=== PATIENT | male | born 1955 | race American Indian/Alaskan Native ===

== ENCOUNTER 2024-07-01 10:13 | Outpatient (AMB) | payer OTHER, SELFPAY ==
[2024-07-01 10:41] VITALS: BP 150/78; PULSE 105; RESP 19; TEMP 36.5; O2SAT 97; BMI 29.9
--- NOTE | 2024-07-01 10:41 | PD.ORTHCLVIS ---
Vital signs 07/01/24 10:41 Height 1.7 m Height Method Stated Weight 86.664 kg Weight Measurement Method Standing Scale BMI 29.9 BP 150/78 H Blood Pressure Source Automatic Cuff Blood Pressure Location Left Upper Arm Position Sitting Respiration 19 Pulse 105 H Pulse Source Monitor Temp 97.7 F Temp Source Temporal Artery Scan Pulse Oximetry (%) 97 Oxygen Delivery Method Room Air Med/Allergies Allergies & Medications Allergies No Known Drug Allergies Allergy (Verified 07/01/24 10:46) Medication Reconciliation diclofenac sodium 25 mg tablet,delayed release 25 mg PO QID 10/23/23 [History Confirmed 07/01/24] meloxicam 15 mg tablet 15 mg PO QDAY 10/23/23 [History Confirmed 07/01/24] meloxicam 7.5 mg tablet 7.5 mg PO QDAY #45 tabs 07/01/24 [Rx] Exam Exam Patient is in no acute distress and is cooperative with the examination today. Breathing is nonlabored. Patient has a normal mood and affect. The patient has a gait that is [nonantalgic] Bilateral extremities were evaluated and demonstrates sensation intact to light touch. Palpable pedal pulses are present. No significant edema is present. Bilateral hips were examined. The patient has no pain with log roll of the hips. Internal rotation to 30 degrees and external rotation to 30 degrees is painless. Negative FADIR. Right knee was examined today. The right knee is in reasonable alignment. Range of motion from 0-120 degrees. Knee is stable to varus and valgus as well as AP translation with <5mm. Patient has a negative McMurrays. There is no pain with patellofemoral compression and no crepitus noted. The knee is nontender to palpation. Left knee was examined today. The left knee is in [neutral] alignment. Range of motion from [0-120] degrees. Knee is stable to varus and valgus as well as AP translation with <5mm. Patient has a [negative] McMurrays. There is [no] pain with patellofemoral compression and [no] crepitus noted. The knee is [nontender] to palpation [diffusely]. X-rays demonstrate significant right and left knee osteoarthritis worse medially. It is [id number]. Right knee was x-rayed And demonstrates complete joint space obliteration. There are osteophytes present. Assessment and Plan Problem List (1) Arthritis of knee, left: Status: Acute Plan: Patient is a pleasant 68-year-old female with bilateral knee arthritis of significant severity. We thus discussed Conservative options including anti-inflammatories, injections as needed. He would like bilateral cortisone injections today Recommend knee cortisone injections as patient would like to proceed with conservative treatment at this time. The risks and benefits of the procedure were reviewed with the patient and patient gave verbal consent to continue with the procedure. Procedure: performed by Dr. Hamilton Using sterile technique the Bilateral knees were thoroughly prepped with alcohol, and approximately 1 cc of Kenalog 40 mg/mL and 4 cc of 1% lidocaine was injected into each knee without resistance into the medial tibial femoral joint space. The patient tolerated the procedure. Advanced Care Planning Discussion Advance care planning discussed with:: patient Office Procedures GNS Level of Care Nursing/Assessment Patient Status: Established Patient Nursing Assessment/Reassesment: Medication Reconciliation, Update PMH in EMR and Vital Signs Coordination of Care: Complex Care and Chronic Disease 1-5, Education Complex Pt/Fam, Consent,records obtained, informed consent, Results/Orders obtained and Staff clarify orders Established Patient Charge Established Patient Point Assignment: 95 Established Patient Point Charge: EP Level 3 (80-115) Surgical Proc/IM SQ injection Major Surgical Procedure: Yes (bilateral knee injections ) Medication Given Medication Given Medication Given: Yes Documented Dose Given: 8 Route: Infiitration Medication Given Medication Given Medication Given: Yes Documented Dose Given: 2 Route: Infiitration Office Meds Xylocaine 10 mg/mL (1 %) injection solution Performing Provider: Dima Hamilton MD Performing Location: [facility] Administered by: Dima Hamilton MD on 07/01/24 12:58 Dose Route Admin Location Dispensed Lot Number Expiration Date [facility] Popped Corn Oven Attendant 40 mL Infiltration 40 mL [id number] [facility] triamcinolone acetonide 40 mg/mL suspension for injection Performing Provider: Dima Hamilton MD Performing Location: [facility] Administered by: Dima Hamilton MD on 07/01/24 12:58 Dose Route Admin Location Dispensed Lot Number Expiration Date [facility] Popped Corn Oven Attendant 80 mg intra-articular 2 mL [id number] [employer] [place] Intake Visit Data Collection New Patient or Established: Established Patient (seen at [facility] within 3 years) Reason for Visit:: BL KNEE INJ F/U Seen by Clinical Staff ONLY (RN/MA): No Bi Consultant Required: No PCP or OBGYN visit in last 3 months: Yes Hx Now: No Do You Feel Safe at Home: Yes Authorities Contacted: N/A Questionairres Past Medical History Past Medical History Have you ever been diagnosed with any of the following: Respiratory Problems Smoking: No Smoking Cessation Counseling: No Smoking Exposure: No Subjective Visit Visit for: follow up visit and knee Immunization / Flu Flu Vaccine in the Last 12 Months: No Flu Vaccine Exclusion Criteria: No Exclusion Criteria History of Present Illness Chief complaint: bilateral knee pain Abel is a pleasant 68-year-old male presents today for evaluation of his left knee. He has had Left knee pain for the last 2 months. The left knee pain is improved dramatically within the last 2 weeks. He has been taking diclofenac and meloxicam. Now he is taking diclofenac. He reports his range of motion has improved significantly. He reports the pain is now back and he has difficulty working,. The right knee pain is now worse than the left Pain Pain level (0-10): 7 Pain duration: ALL DAY Pain timing: increases with activity Associated signs & symptoms: none Ambulatory data Ambulatory device: none Treatments Improvement with previous injections: Yes Improvement with PT: No Improvement with NSAIDS: no Review of Systems Review of Systems: All systems negative unless otherwise noted in HPI.
== END 2024-07-01 11:14 | disposition home or self-care (01) ==
LOC: HODSRG 10:13
PROVIDERS: PCP Internal Medicine; Referring Provider Internal Medicine; Supervising Provider Orthopaedic Surgery Adult Reconstructive Orthopaedic Surgery; Visit Provider Orthopaedic Surgery Adult Reconstructive Orthopaedic Surgery
DX: M17.0 Bilateral primary osteoarthritis of knee (principal)
CPT/HCPCS: 20610; 99213; J3301; J3490; G0463

== ENCOUNTER 2024-09-22 08:06 | Outpatient (AMB) | payer OTHER, SELFPAY ==
[2024-09-22 08:28] VITALS: BP 160/79; PULSE 88; RESP 18; TEMP 36.4; O2SAT 97; BMI 29.2
--- NOTE | 2024-09-22 08:28 | PD.ORTHCLVIS ---
Vital signs 09/22/24 08:28 Height 1.7 m Height Method Stated Weight 84.453 kg Weight Measurement Method Standing Scale BMI 29.2 BP 160/79 H Blood Pressure Source Automatic Cuff Blood Pressure Location Right Upper Arm Position Sitting Respiration 18 Pulse 88 Pulse Source Monitor Temp 97.5 F Temp Source Temporal Artery Scan Pulse Oximetry (%) 97 Oxygen Delivery Method Room Air Med/Allergies Allergies & Medications Allergies No Known Drug Allergies Allergy (Verified 09/22/24 08:29) Medication Reconciliation diclofenac sodium 25 mg tablet,delayed release 25 mg PO QID 10/23/23 [History Confirmed 09/22/24] meloxicam 15 mg tablet 15 mg PO QDAY 10/23/23 [History Confirmed 09/22/24] diclofenac sodium 3 % topical gel 1 applic topical BID #100 grams 09/22/24 [Rx] meloxicam 7.5 mg tablet 7.5 mg PO QDAY #45 tabs 09/22/24 [Rx] Exam Exam Patient is in no acute distress and is cooperative with the examination today. Breathing is nonlabored. Patient has a normal mood and affect. The patient has a gait that is [nonantalgic] Bilateral extremities were evaluated and demonstrates sensation intact to light touch. Palpable pedal pulses are present. No significant edema is present. Bilateral hips were examined. The patient has no pain with log roll of the hips. Internal rotation to 30 degrees and external rotation to 30 degrees is painless. Negative FADIR. Right knee was examined today. The right knee is in reasonable alignment. Range of motion from 0-120 degrees. Knee is stable to varus and valgus as well as AP translation with <5mm. Patient has a negative McMurrays. There is no pain with patellofemoral compression and no crepitus noted. The knee is nontender to palpation. Left knee was examined today. The left knee is in [neutral] alignment. Range of motion from [0-120] degrees. Knee is stable to varus and valgus as well as AP translation with <5mm. Patient has a [negative] McMurrays. There is [no] pain with patellofemoral compression and [no] crepitus noted. The knee is [nontender] to palpation [diffusely]. X-rays demonstrate significant right and left knee osteoarthritis worse medially. It is [id number]. Right knee was x-rayed And demonstrates complete joint space obliteration. There are osteophytes present. Assessment and Plan Problem List (1) Arthritis of knee, left: Status: Acute Plan: Patient is a pleasant 68-year-old female with bilateral knee arthritis of significant severity. We thus discussed Conservative options including anti-inflammatories, injections as needed. He would like bilateral cortisone injections today Recommend knee cortisone injections as patient would like to proceed with conservative treatment at this time. The risks and benefits of the procedure were reviewed with the patient and patient gave verbal consent to continue with the procedure. Procedure: performed by Dr. Hamilton Using sterile technique the Bilateral knees were thoroughly prepped with alcohol, and approximately 1 cc of Kenalog 40 mg/mL and 4 cc of 1% lidocaine was injected into each knee without resistance into the medial tibial femoral joint space. The patient tolerated the procedure. Advanced Care Planning Discussion Advance care planning discussed with:: patient Office Procedures GNS Level of Care Nursing/Assessment Patient Status: Established Patient Nursing Assessment/Reassesment: Medication Reconciliation, Update PMH in EMR and Vital Signs Coordination of Care: Complex Care and Chronic Disease 1-5, Education Complex Pt/Fam, Consent,records obtained, informed consent, Lab and Imaging orders, Results/Orders obtained and Staff clarify orders Special Needs: Language special needs Established Patient Charge Established Patient Point Assignment: 110 Established Patient Point Charge: EP Level 3 (80-115) Surgical Proc/IM SQ injection Major Surgical Procedure: Yes (BILATERAL KNEE INJECTION) Medication Given Medication Given Medication Given: Yes Documented Dose Given: 8 Route: Infiitration Medication Given Medication Given Medication Given: Yes Documented Dose Given: 2 Route: Infiitration Office Meds Xylocaine 10 mg/mL (1 %) injection solution Performing Provider: Dima Hamilton MD Performing Location: [facility] Administered by: Dima Hamilton MD on 09/22/24 08:44 Dose Route Admin Location Dispensed Lot Number Expiration Date [facility] Door To Door Sales Representative 40 mL Infiltration 40 mL [id number] 11/22/27 15436-079-96 [facility] triamcinolone acetonide 40 mg/mL suspension for injection Performing Provider: Dima Hamilton MD Performing Location: [facility] Administered by: Dima Hamilton MD on 09/22/24 08:44 Dose Route Admin Location Dispensed Lot Number Expiration Date [facility] Door To Door Sales Representative 80 mg intra-articular 2 mL [id number] 05/23/26 2475-1785-59 [facility]EV[facility]ENTER[facility] [place] Intake Visit Data Collection New Patient or Established: Established Patient (seen at [facility] within 3 years) Reason for Visit:: req knee injection Seen by Clinical Staff ONLY (RN/MA): No Verbal consent obtained for Telemed visit?: No Hand Engraver Required: No PCP or OBGYN visit in last 3 months: Yes Hx Now: No Do You Feel Safe at Home: Yes Authorities Contacted: N/A Questionairres Past Medical History Past Medical History Have you ever been diagnosed with any of the following: Respiratory Problems Smoking: No Smoking Cessation Counseling: No Smoking Exposure: No Subjective Visit Visit for: follow up visit and knee Immunization / Flu Flu Vaccine in the Last 12 Months: No Flu Vaccine Exclusion Criteria: No Exclusion Criteria History of Present Illness Chief complaint: req knee injection Abel is a pleasant 68-year-old male presents today for evaluation of his left knee. He has had Left knee pain for the last 2 months. The left knee pain is improved dramatically within the last 2 weeks. He has been taking diclofenac and meloxicam. Now he is taking diclofenac. He reports his range of motion has improved significantly. He reports the pain is now back and he has difficulty working,. The right knee pain is now worse than the left Pain Pain level (0-10): 8 Pain duration: all day Pain location: inside (medial), outside (lateral), anterior and posterior Pain quality: sharp, dull and aching Pain timing: increases with activity Associated signs & symptoms: none Ambulatory data Ambulatory device: none Treatments Improvement with previous injections: Yes Improvement with PT: No Improvement with NSAIDS: no Review of Systems Review of Systems: All systems negative unless otherwise noted in HPI.
== END 2024-09-22 08:43 | disposition home or self-care (01) ==
LOC: HODSRG 08:06
PROVIDERS: PCP Internal Medicine; Referring Provider Internal Medicine; Supervising Provider Orthopaedic Surgery Adult Reconstructive Orthopaedic Surgery; Visit Provider Orthopaedic Surgery Adult Reconstructive Orthopaedic Surgery
DX: M17.0 Bilateral primary osteoarthritis of knee (principal); M25.562 Pain in left knee; M25.561 Pain in right knee
CPT/HCPCS: 20610; 99213; J3301; J3490; G0463

== ENCOUNTER → 2025-01-27 | Outpatient (CLI) | payer OTHER, SELFPAY ==
[2025-01-27 08:40] LABS: Basophils # (Auto) 0.0 Thou/mm3 (0.0-0.2); Basophils % (Auto) 0 % (0-2.5); Eosinophils # (Auto) 0.1 Thou/mm3 (0.0-0.5); Eosinophils % (Auto) 1 % (0-10); Hematocrit 43.7 % (41.0-53.0); Hemoglobin 14.8 g/dL (13.5-16.0); Immature Granulocytes Auto 0.05 Thou/mm3 (0.00-0.00); Lymphocytes # (Auto) 2.2 Thou/mm3 (1.0-4.8); Lymphocytes % (Auto) 29 % (10-50); Mean Corpuscular HGB Conc 33.9 g/dl (31.0-37.0); Mean Corpuscular Hemoglobin 30.8 pg (25.0-35.0); Mean Corpuscular Volume 91 fL (80-100); Monocytes # (Auto) 0.7 Thou/mm3 (0.0-0.8); Monocytes % (Auto) 10 % (0-12); Neutrophils # (Auto) 4.3 Thou/mm3 (1.8-7.7); Neutrophils % (Auto) 59 % (37-80); Nucleated Red Blood Cell # 0.00 Thou/mm3 (0.00-0.00); Nucleated Red Blood Cell % 0 /100 WBC (0); Platelet Count 334 Thou/mm3 (140-440); RDW Standard Deviation 46.3 fL (35.1-43.9); Red Blood Count 4.81 Miln/mm3 (4.50-5.90); White Blood Count 7.3 Thou/mm3 (3.8-10.6)
[2025-01-27 08:49] LABS: Glucose Estimated Average 134 mg/dL (80-131); Hemoglobin A1C 6.3 % Hgb (4.8-6.0)
[2025-01-27 08:54] LABS: Vitamin D 25 Hydroxy Total 41.4 ng/mL (7.3-40.2)
[2025-01-27 09:00] LABS: Prostate Specific Antigen 0.81 ng/mL (0-4.00)
[2025-01-27 09:04] LABS: Alanine Aminotransferase 43 U/L (10-49); Albumin, Serum 4.4 gm/dL (3.4-4.8); Albumin/Globulin Ratio 2.1 (1.2-2.2); Alkaline Phosphatase 57 U/L (46-116); Anion Gap 12 (7-16); Aspartate Amino Transferase 23 U/L (0-34); BUN/Creatinine Ratio 24 Ratio (12-20); Bilirubin,Total 0.5 mg/dL (0.3-1.2); Blood Urea Nitrogen 17 mg/dL (9-23); Calcium 10.0 mg/dL (8.3-10.6); Calcium (Corrected) 10.0 mg/dL (8.5-10.1); Carbon Dioxide 23.8 mMol/L (20.0-31.0); Cardiac Risk Estimate 3.4 RATIO (4.0-6.7); Chloride 111 mMol/L (98-107); Cholesterol 131 mg/dL (132-200); Creatinine (Component) 0.7 mg/dL (0.6-1.3); Free T4 (Free Thyroxine) 1.13 ng/dL (0.89-1.76); Globulin 2.1 gm/dL (2.3-3.5); Glucose 141 mg/dL (74-106); HDL Cholesterol 38 mg/dL (40-60); LDL Cholesterol,Calculated 65 mg/dL (0-130); Osmolality,Calculated 295 (275-295); Potassium 4.2 mMol/L (3.4-5.1); Sodium 147 mMol/L (136-145); Thyroid Stimulating Hormone 1.22 uIU/mL (0.55-4.78); Total Protein 6.5 gm/dL (5.7-8.2); Triglycerides 138 mg/dL (30-150); eGFR > 60 See Note
== END | disposition home or self-care (01) ==
PROVIDERS: PCP Internal Medicine; Referring Provider Internal Medicine; Visit Provider Internal Medicine
DX: Z00.00 Encounter for general adult medical examination without abnormal findings (principal); E11.9 Type 2 diabetes mellitus without complications; N40.1 Benign prostatic hyperplasia with lower urinary tract symptoms; E55.9 Vitamin D deficiency, unspecified; E03.9 Hypothyroidism, unspecified
CPT/HCPCS: 36415; 80053; 80061; 82306; 83036; 84153; 84439; 84443; 85025

== ENCOUNTER → 2025-02-10 | Outpatient (CLI) | payer OTHER, SELFPAY ==
[2025-02-10 17:17] LABS: Creatinine MALB Rnd Ur 165 mg/dL (30-125); Microalbumin Creat Ratio 5 mg/gCrea (<30); Microalbumin, Random Urine 8 mg/L (0-300)
[2025-02-16 06:56] LABS: Fecal Globin Result NOT DETECTED (NOT DETECTED)
== END | disposition home or self-care (01) ==
LOC: SLDO 14:58
PROVIDERS: Referring Provider Internal Medicine; Visit Provider Internal Medicine
DX: Z00.00 Encounter for general adult medical examination without abnormal findings (principal)
CPT/HCPCS: 82043; 82274; 82570; G0328

== ENCOUNTER 2025-02-17 09:18 | Outpatient (AMB) | payer OTHER, SELFPAY ==
--- NOTE | 2025-02-17 09:34 | ORTHONT_ITS ---
Vital signs 02/17/25 09:35 Height 1.7 m Height Method Measured Weight 85.02 kg Weight Measurement Method Standing Scale BMI 29.4 BP 162/92 H Blood Pressure Source Automatic Cuff Blood Pressure Location Left Upper Arm Position Sitting Respiration 18 Pulse 91 Pulse Source Monitor Temp 97.9 F Temp Source Temporal Artery Scan Pulse Oximetry (%) 97 Oxygen Delivery Method Room Air Med/Allergies Allergies & Medications Allergies No Known Drug Allergies Allergy (Verified 02/17/25 09:36) Medication Reconciliation diclofenac sodium 25 mg tablet,delayed release 25 mg PO QID 10/23/23 [History Confirmed 02/17/25] meloxicam 15 mg tablet 15 mg PO QDAY 10/23/23 [History Confirmed 02/17/25] diclofenac sodium 3 % topical gel 1 applic topical BID #100 grams 09/22/24 [Rx Confirmed 02/17/25] meloxicam 7.5 mg tablet 7.5 mg PO QDAY #45 tabs 09/22/24 [Rx Confirmed 02/17/25] Exam Exam Patient is in no acute distress and is cooperative with the examination today. Breathing is nonlabored. Patient has a normal mood and affect. The patient has a gait that is [nonantalgic] Bilateral extremities were evaluated and demonstrates sensation intact to light touch. Palpable pedal pulses are present. No significant edema is present. Bilateral hips were examined. The patient has no pain with log roll of the hips. Internal rotation to 30 degrees and external rotation to 30 degrees is painless. Negative FADIR. Right knee was examined today. The right knee is in reasonable alignment. Range of motion from 0-120 degrees. Knee is stable to varus and valgus as well as AP translation with <5mm. Patient has a negative McMurrays. There is no pain with patellofemoral compression and no crepitus noted. The knee is nontender to palpation. Left knee was examined today. The left knee is in [neutral] alignment. Range of motion from [0-120] degrees. Knee is stable to varus and valgus as well as AP translation with <5mm. Patient has a [negative] McMurrays. There is [no] pain with patellofemoral compression and [no] crepitus noted. The knee is [nontender] to palpation [diffusely]. X-rays demonstrate significant right and left knee osteoarthritis worse medially. It is [id number]. Right knee was x-rayed And demonstrates complete joint space obliteration. There are osteophytes present. Assessment and Plan Problem List (1) Arthritis of knee, left: Status: Acute Plan: Patient is a pleasant 68-year-old female with bilateral knee arthritis of significant severity. We thus discussed Conservative options including anti- inflammatories, injections as needed. He would like bilateral cortisone injections today Recommend knee cortisone injection as patient would like to proceed with conservative treatment at this time. The risks and benefits of the procedure were reviewed with the patient and patient gave verbal consent to continue with the procedure. Procedure: performed by Dr. Hamilton Using sterile technique the Right knee was thoroughly prepped with alcohol, and approximately 1 cc of Depo-Medrol 80mg/mL and 4 cc of 0.2% ropivacaine was injected without resistance into the medial tibial femoral joint space. The patient tolerated the procedure. Recommend knee cortisone injection as patient would like to proceed with conservative treatment at this time. The risks and benefits of the procedure were reviewed with the patient and patient gave verbal consent to continue with the procedure. Procedure: performed by Dr. Hamilton Using sterile technique the leftknee was thoroughly prepped with alcohol, and approximately 1 cc of Depo- Medrol 80mg/mL and 4 cc of 0.2% ropivacaine was injected without resistance into the medial tibial femoral joint space. The patient tolerated the procedure. Advanced Care Planning Discussion Advance care planning discussed with:: patient Office Procedures GNS Level of Care Nursing/Assessment Patient Status: Established Patient Nursing Assessment/Reassesment: Medication Reconciliation, Update PMH in EMR and Vital Signs Coordination of Care: Complex Care and Chronic Disease 1-5, Education Complex Pt/Fam, Consent,records obtained, informed consent, Results/Orders obtained and Staff clarify orders Established Patient Charge Established Patient Point Assignment: 95 Established Patient Point Charge: EP Level 3 (80-115) Surgical Proc/IM SQ injection Minor Surgical Procedure: Yes (KNEE INJECTION) Medication Given Medication Given Medication Given: Yes Documented Dose Given: 1 Route: Infiitration Medication Given Medication Given Medication Given: Yes Documented Dose Given: 1 Route: Infiitration Medication Given Medication Given Medication Given: Yes Documented Dose Given: 4 Route: Infiitration Medication Given Medication Given Medication Given: Yes Documented Dose Given: 4 Route: Infiitration Office Meds methylprednisolone acetate 80 mg/mL suspension for injection Performing Provider: Dima Hamilton MD Performing Location: [facility] Administered by: Dima Hamilton MD on 02/17/25 10:54 Dose Route Admin Location Dispensed Lot Number Expiration Date Pack age [facility] Vacuum Cleaner Assembler 80 mg intra-articular KNEE 1 mL [id number] 10/22/26 [address]-1 7 [id number] [employer] methylprednisolone acetate 80 mg/mL suspension for injection Performing Provider: Dima Hamilton MD Performing Location: [facility] Administered by: Dima Hamilton MD on 02/17/25 10:54 Dose Route Admin Location Dispensed Lot Number Expiration Date Pack age [facility] Vacuum Cleaner Assembler 80 mg intra-articular KNEE 1 mL [id number] 10/22/26 [address]-6 7 [id number] [employer] ropivacaine (PF) 2 mg/mL (0.2 %) injection solution Performing Provider: Dima Hamilton MD Performing Location: [facility] Administered by: Dima Hamilton MD on 02/17/25 10:54 Dose Route Admin Location Dispensed Lot Number Expiration Date Pack age [facility] Vacuum Cleaner Assembler 20 mL Infiltration KNEE 20 mL [id number] 06/24/27 09268-321-57 [id number] [facility] ropivacaine (PF) 2 mg/mL (0.2 %) injection solution Performing Provider: Dima Hamilton MD Performing Location: [facility] Administered by: Dima Hamilton MD on 02/17/25 10:54 Dose Route Admin Location Dispensed Lot Number Expiration Date Pack age [facility] [place] Vacuum Cleaner Assembler 20 mL Infiltration KNEE 20 mL [id number] 06/24/27 25799-872-91 [id number] [facility] Visit Data Collection New Patient or Established: Established Patient (seen at [facility] within 3 years) Reason for Visit:: req knee injection Seen by Clinical Staff ONLY (RN/MA): No Verbal consent obtained for Telemed visit?: No Certification Technician Required: No PCP or OBGYN visit in last 3 months: Yes Hx Now: No Do You Feel Safe at Home: Yes Authorities Contacted: N/A Questionairres Past Medical History Past Medical History Have you ever been diagnosed with any of the following: Respiratory Problems Smoking: No Smoking Cessation Counseling: No Smoking Exposure: No Subjective Visit Visit for: follow up visit and knee Immunization / Flu Flu Vaccine in the Last 12 Months: No Flu Vaccine Exclusion Criteria: No Exclusion Criteria History of Present Illness Chief complaint: req knee injection Abel is a pleasant 68-year-old male presents today for evaluation of his left knee. He has had Left knee pain for the last 2 months. The left knee pain is improved dramatically within the last 2 weeks. He has been taking diclofenac and meloxicam. Now he is taking diclofenac. He reports his range of motion has improved significantly. He reports the pain is now back and he has difficulty working,. The right knee pain is now worse than the left Pain Pain level (0-10): 8 Pain duration: all day Pain location: inside (medial), outside (lateral), anterior and posterior Pain quality: sharp, dull and aching Pain timing: increases with activity Associated signs & symptoms: none Ambulatory data Ambulatory device: none Treatments Improvement with previous injections: Yes Improvement with PT: No Improvement with NSAIDS: no Review of Systems Review of Systems: All systems negative unless otherwise noted in HPI.
[2025-02-17 09:35] VITALS: BP 162/92; PULSE 91; RESP 18; TEMP 36.6; O2SAT 97; BMI 29.4
== END 2025-02-17 09:50 | disposition home or self-care (01) ==
LOC: HODSRG 09:18
PROVIDERS: Supervising Provider Orthopaedic Surgery Adult Reconstructive Orthopaedic Surgery; Visit Provider Orthopaedic Surgery Adult Reconstructive Orthopaedic Surgery
DX: M17.0 Bilateral primary osteoarthritis of knee (principal); M25.562 Pain in left knee; M25.561 Pain in right knee
CPT/HCPCS: 20610; 99213; J1010; J2795; G0463